=== PATIENT | female | born 1990 | race Caucasian/White ===

== ENCOUNTER 2018-03-09 05:33 | Day surgery (SDC) | payer OTHER ==
--- NOTE | 2018-03-08 22:07 | GHP ---
[f rep st] PREOP HISTORY AND PHYSICAL DATE OF ADMISSION: 03/09/2018 DATE OF SURGERY: Set for 03/09/2018, on the Gynecology Service. HISTORY: At the time of preop, the patient is a 27-year-old, G0, white female who has had a complex enlarged right ovarian cyst that has caused her recurrent episodes of significant pain for which she has needed evaluation in the emergency room. The patient has been counseled about the persistence of the cyst and the option of surgically removing the cyst itself or removing the entire right ovary for complete resolution. The patient now wants to proceed with right ovarian cystectomy. The patient has not had any recent episodes of pain. However, the last ultrasound shows that the cyst persists with a complex appearance. The patient is counseled as to the more definitive surgery of an RSO, which would eliminate the possibility of recurrence of cystic formation from the base of the cyst wall. The patient has also been advised that removing this cyst will spill contents into the abdominal cavity and if this potentially is a borderline tumor, then that might increase potential risk for the patient. The patient would like to preserve her right ovary if possible and try to remove the cyst or disrupt the cyst wall. The patient understands the most likely diagnosis is a dermoid cystic formation. The patient is counseled as to the risks and benefits of laparoscopy and has signed the consent form. PAST MEDICAL HISTORY: PCOS, acid reflux, complex right ovarian cyst first noted in February of 2016 when the patient was seen in the emergency room. In March of 2017, the patient again presented to the emergency room and was found have a complex 8 cm right ovary. In July 2017, the cyst was re-evaluated by ultrasound and was 4 x 3 x 2 cm. The patient opted to just continue and follow in December of 2017, again was noted to have an enlarged right ovary with an irregular complex, lobulated cyst 5 x 4.7 x 3.8 cm. The cyst appears to be septated with lobular borders, possible dermoid formation. Left ovary appears normal. There is good flow to both ovaries and the uterus itself appears normal. PAST SURGICAL HISTORY: Odontectomy in her teens. PAST ENVIRONMENTAL ENGINEER HISTORY: The patient has monthly menses, currently on Linnea for cycle management due to her PCOS. The patient normally has several days of bleeding on her period with no breakthrough bleeding. The patient denies history of STDs. ALLERGIES: Sulfa as a child, questionable reaction. CURRENT MEDICATIONS: Linnea control pills and she is about to be on the placebo week. Zegerid for acid suppression. No [id number] supplements or herbs. SOCIAL HISTORY: The patient is a lesbian white female who has been in a stable relationship for many years. The patient is a nonsmoker. No alcohol or drug use. PHYSICAL EXAM: GENERAL: The patient is a well-developed, obese, white female in no physical distress. VITAL SIGNS: Blood pressure 110/70, weight 230 pounds. Clinically afebrile. HEENT: There is no thyromegaly. No adenopathy. The oropharynx is clear. LUNGS: Clear to auscultation bilaterally. CARDIOVASCULAR: Regular rate and rhythm. ABDOMEN: Soft and nontender. PELVIC : Deferred. EXTREMITIES: Nontender. Mild edema. Normal DTRs. ASSESSMENT: Complex right ovarian lobular mass, persistent on multiple ultrasounds, with pain episodes since 2016. PLAN: Patient desires to proceed with right ovarian cystectomy. The hope will be to interrupt the cyst capsule and disrupt further cyst formation. The patient understands that, if there is bleeding issues, the ovary and tube might need to be removed. /[id number]/MODL MTDD
[2018-03-09] MEDS ORDERED: ceFAZolin 2 GM/DEXTROSE 100 ML IV ONE (05:49)
[2018-03-09] MEDS ORDERED: LR 1,000 ML IV ONE (05:51)
[2018-03-09] MEDS ORDERED: LIDOCAINE 1% 2 ML INJ ID PRN (05:51)
[2018-03-09] MEDS ORDERED: BUPIVACAINE 0.25% 30 ML SDV ONE (06:54)
[2018-03-09] MEDS ORDERED: SILVER NITRATE APPLICATOR 1 APPL TP ONE (06:55)
[2018-03-09] MEDS ORDERED: EPINEPHrine 1 MG/ML INJ ONE (06:55)
[2018-03-09] MEDS ORDERED: MIDAZOLAM 2 MG/2 ML VIAL IVP ONE (07:04)
--- NOTE | 2018-03-09 07:04 | PDANEPAE ---
ANE History of Present Illness complex ovarian cyst ANE Past Medical History - Cardiovascular History Hx Hypertension: No Hx Arrhythmias: No Hx Chest Pain: No Hx Coronary Artery / Peripheral Vascular Disease: No Hx CHF / Valvular Disease: No Hx Palpitations: No Cardiovascular History Comment: ELEV BP W/ANXIETY - Pulmonary History Hx COPD: No Hx Asthma/Reactive Airway Disease: No Hx Recent Upper Respiratory Infection: No Hx Oxygen in Use at Home: No Hx Sleep Apnea: No Sleep Apnea Screening Result - Last Documented: Negative - Neurologic History Hx Cerebrovascular Accident: No Hx Seizures: No Hx Dementia: No - Endocrine History Hx Diabetes: No Hypothyroid: No Hyperthyroid: No Obesity: yes, severe - Renal History Hx Renal Disorders: No - Liver History Hx Hepatic Disorders: No - Neurological & Psychiatric Hx Hx Neurological and Psychiatric Disorders: Yes Neurological / Psychiatric History Comment: ANXIETY - Cancer History Hx Cancer: No - Congenital Disorder History Hx Congenital Disorders: No - GI History GERD: moderate Hx Gastrointestinal Disorders: Yes Gastrointestinal History Comment: ACID REFLUX - Other Health History Other Health History: NEG - Chronic Pain History Chronic Pain: No - Surgical History Prior Surgeries: WISDOM TEETH ANE Review of Systems Review of systems is: negative Review of Systems: - Exercise capacity METS (RN): 4 METS ANE Patient History - Allergies Allergies/Adverse Reactions: Sulfa (Sulfonamide Antibiotics) Allergy (Verified 02/28/18 12:09) UNKNOWN FROM CHILDHOOD - Home Medications Home medications: home medication list seen and reviewed Home Medications: Linnea 28 Tablet 02/28/18 [Last Taken 03/08/18 19:00] Zegerid 20 mg Capsule 02/28/18 [Last Taken 03/08/18 07:00] - NPO status NPO Since - Liquids (Date): 03/08/18 NPO Since - Liquids (Time): 00:00 NPO Since - Solids (Date): 03/08/18 NPO Since - Solids (Time): 21:00 - Anes Hx Anes Hx: no prior problems - Smoking Hx Smoking Status: Former smoker - Family Anes Hx Family Hx Anesthesia Complications: NEG ANE Labs/Vital Signs - Vital Signs Blood Pressure: 173/116 Heart Rate: 95 Respiratory Rate: 18 O2 Sat (%): 97 Height: 157.48 cm Weight: 99.79 kg ANE Physical Exam - Airway Neck exam: FROM Mallampati Score: Class 1 Mouth exam: normal dental/mouth exam - Pulmonary Pulmonary: no respiratory distress - Cardiovascular Cardiovascular: regular rate and rhythym - ASA Status ASA Status: III ANE Anesthesia Plan Anesthesia Plan: general endotracheal anesthesia
[2018-03-09] MEDS ORDERED: PROPOFOL 200 MG/20 ML VIAL ONE ×2 (07:09)
[2018-03-09] MEDS ORDERED: fentaNYL 100 MCG/2 ML INJ ONE ×3 (07:09→08:17)
[2018-03-09] MEDS ORDERED: ROCURONIUM 100 MG/10 ML VIAL ONE (07:12)
[2018-03-09] MEDS ORDERED: LIDOCAINE 2% 5 ML SDV ONE (07:13)
[2018-03-09] MEDS ORDERED: KETOROLAC 30 MG/1 ML SDV ONE (07:13)
[2018-03-09] MEDS ORDERED: DEXAMETHASONE 4 MG/ML VIAL ONE (07:13)
[2018-03-09] MEDS ORDERED: ONDANSETRON 4 MG/2 ML VIAL ONE (07:13)
[2018-03-09] MEDS ORDERED: SUGAMMADEX SODIUM 200 MG/2 ML VIAL IVP ONE (07:13)
--- NOTE | 2018-03-09 07:25 | PDHPUP ---
History & Physical Update H&P update statement: This history and physical update is based on an assessment of the patient which was completed after admission or registration (within 24 hours), but prior to the surgery/procedure. H&P update: changes noted (Pt with hypertension upon arrival in Preop, anxious. denies CARDONA or chest pain)
[2018-03-09] MEDS ORDERED: HYDROCODONE/APAP 5/325 TAB PO PRN ×2 (08:21→09:32)
[2018-03-09] MEDS ORDERED: ONDANSETRON 4 MG/2 ML VIAL IVP PRN (08:21)
[2018-03-09] MEDS ORDERED: fentaNYL 100 MCG/2 ML INJ IVP PRN (08:21)
[2018-03-09] MEDS ORDERED: oxyCODONE IR 5 MG TAB PO PRN (08:21)
[2018-03-09] MEDS ORDERED: HYDROmorphONE/DILAUDID 1 MG/ML INJ IVP PRN (08:21)
[2018-03-09] MEDS ORDERED: METOCLOPRAMIDE 10 MG/2 ML VIAL IVP PRN (08:21)
[2018-03-09] MEDS ORDERED: ALBUTEROL 3 ML DEYVIAL IH PRN (08:21)
[2018-03-09] MEDS ORDERED: PROMETHAZINE HCL 25 MG/ML INJ IVP PRN (08:21)
[2018-03-09] MEDS ORDERED: LR 500 ML IV PRN (08:21)
[2018-03-09] MEDS ORDERED: NALOXONE HCL 0.4 MG/ML INJ IVP PRN (08:21)
[2018-03-09] MEDS ORDERED: ACETAMINOPHEN 500 MG TAB PO PRN (08:21)
[2018-03-09] MEDS ORDERED: LABETALOL HCL 5 MG/ML 20 ML MDV IVP PRN (08:21)
--- NOTE | 2018-03-09 08:21 | POSTANESTH ---
Post Anesthetic Evaluation Cardiovascular Status: Normal, Stable Respiratory Status: Normal, Stable Level of Consciousness/Mental Status: Can Participate in Eval, Mildly Sleepy, Arousable Pain Control: Adequate, Prn Tx Ordered Nausea/Vomiting Control: Adequate, Prn Tx Ordered Complications Possibly Related to Anesthesia: None Noted
--- NOTE | 2018-03-09 09:39 | POSTOPPROG ---
Post Op Note Date of Operation: 03/09/18 Surgeon: Leah Evans Director Translational: Cassy Muñoz SA Anesthesiologist: Ji Menchaca MD Anesthesia: GET(General Endotracheal) Pre-op Diagnosis: ROV complex cyst Post-op Diagnosis: same Indication: episodes of pain with ROV complex cyst, u/s multicystic 5-8 cm Procedure: LSC ROV cystectomy Findings: enlarged irreg ROV, o/w nl ut/KAMALA/appi/liver. serous fluid upon cytotomy Inf/Abcess present in the surg proc area at time of surgery?: No Depth: Organ Space EBL: Minimal (25cc) Total fluids administered: 950 Complications: none Specimen(s): ROV cyst wall
[2018-03-09] MEDS ORDERED: HYDROCODONE/APAP 5/325 TAB ONE (10:04)
[2018-03-09 11:45] VITALS: BP 158/110
--- NOTE | 2018-03-29 00:09 | GOP ---
[f rep st] OPERATIVE REPORT DATE OF OPERATION: 03/09/2018 SURGEON: Leah Evans MD INSERTER: JEAN MARIE Beal, assistant executive housekeeper. ANESTHESIA: General endotracheal anesthesia. ANESTHESIOLOGIST: Ji Menchaca MD. PREOPERATIVE DIAGNOSIS: Right ovarian complex cyst. POSTOPERATIVE DIAGNOSIS: Right ovarian complex cyst. PROCEDURE PERFORMED: Laparoscopic right ovarian cystectomy. FINDINGS: SPECIMENS: The specimen to Pathology was the right ovarian cyst wall. ESTIMATED BLOOD LOSS: Minimal at 25 mL. There was no evidence of infection in the surgery and no complications. INDICATIONS: Patient is a 27-year-old, G0, white female who has had an enlarged complex right ovaria n cyst causing recurrent episodes of significant pain for which she has presented to the emergency ro om 2 times in the past. Patient has been counseled as to the option of surgical removal and at this time wanted to proceed with laparoscopic cystectomy. Patient was counseled as to the options of valorie ving the right ovary versus attempting a cystectomy and wanted to proceed with cystectomy to retain t he ovary. Risks and benefits of laparoscopy were discussed with the patient and the consent form sig ramandeep. DESCRIPTION OF PROCEDURE: The patient was taken to the operating room. Following satisfactory gener al endotracheal anesthesia, the patient was placed in dorsal lithotomy position. The patient receive d IV antibiotics prior to surgery and had a Desouza catheter placed after anesthesia. The patient had SCDs on her lower extremities for DVT prophylaxis. The patient was prepped and draped in usual steri le manner for laparoscopy. Sterile speculum was placed within the vagina and a tenaculum placed on t he anterior lip of the cervix. A [employer] uterine manipulator was introduced for manipulation during la paroscopy. Attention was turned abdominally. An infraumbilical incision was made along the natural crease after 0.25% Marcaine was used to inject subcutaneously at the umbilicus. Upward abdominal wal l traction was applied as the Veress needle was introduced through this incision into the abdominal c avity. Normal low opening pressures were obtained, and CO2 was used to insufflate the abdomen. Afte r good insufflation, then a 5 mm trocar was introduced through the umbilicus again with upward tracti on on the abdominal wall. Through this port then the laparoscopic camera was placed and confirmed in tra-abdominal position. The lower ports were placed without any problem. On bilateral lower quadran ts, Marcaine was injected and small incisions were performed. Through both incisions under direct vi sualization, 5 mm trocars were introduced. Through these ports then blunt graspers were introduced. Inspection was performed. The right ovary was evident and very irregular and enlarged but free of a dhesions. The uterus itself appeared normal and was mobile without adhesions. The left tube and ova ry appeared normal, and the right tube appeared normal. In the posterior cul-de-sac, there was some tenting and adhesions to the left uterosacral ligament. Further inspection revealed the appendix and liver edge to be normal. While the ovary was grasped and elevated, cautery was used to incise along the ovarian cyst capsule. After this was entered then serous fluid was noted inside, and this was s uctioned out. There was no evidence of hair or mucoid fluid. The edge of the ovarian tissue was gra sped, and traction was applied on the cyst wall for removal from the ovarian interior. The ovarian c yst appeared multilocular. There was a good-sized cyst wall that was extracted from the right ovary. There was good hemostasis and no need for cautery. The cyst wall was removed through the 5 mm port without problem. Again with careful inspection of the ovary, there was good hemostasis. The ovary was well decompressed. The surgery was completed at this time, and both lower trocars were removed u nder direct visualization, and there was good hemostasis. The camera was removed, and the CO2 was al lowed to escape from the abdominal cavity and then the umbilical trocar was also removed. Each of th e 3 incisions were closed with horizontal mattress stitch of 4-0 Monocryl. Mastisol was applied on t he skin, and Steri-Strips were used to close the incisions and then Band-Aids were placed over the to p. Patient tolerated the procedure well. The tenaculum and the [employer] manipulator were taken off the cervix, and there was no bleeding. The patient was awoken after she was cleaned up and taken to the recovery room in stable condition. TOTAL IV FLUIDS: 950 cc. /[id number]/MODL
== END 2018-03-09 11:39 | disposition home or self-care (01) ==
LOC: FSGY 05:33
PROVIDERS: ATTEND Obstetrics & Gynecology
PROC: 0UB04ZX Excision of Right Ovary, Percutaneous Endoscopic Approach, Diagnostic (ICD-10-PCS; principal; 2018-03-09 07:15)
DX: N83.201 Unspecified ovarian cyst, right side (principal); R03.0 Elevated blood-pressure reading, without diagnosis of hypertension; E28.2 Polycystic ovarian syndrome; K21.9 Gastro-esophageal reflux disease without esophagitis; Z87.891 Personal history of nicotine dependence
CPT/HCPCS: J0171; J0690; J1100; J1885; J2250; J2405; J2704; J3010